=== PATIENT | female | born 2000 | race Caucasian/White ===

== ENCOUNTER 2021-05-10 00:13 | Inpatient (IN) | payer OTHER ==
[~2021-05-10] VITALS: Ht 157.5 cm; Wt 65.3 kg
--- NOTE | 2021-05-10 11:27 | PR ---
[facility] [address] [facility] [place], [place] [address] Signed Progress Notes IP Datetime Report Generated by CPN: 05/10/2021 11:26 PROGRESS NOTES: [id number] Plan: Continue Present Management; Cervical Ripening Other Plans: Cytotec #3 VITAL SIGNS: [id number] Vital Signs: Reviewed; Within Normal Limits EXAM: [id number] Dilatation: 0.0 Effacement: 50 Station: -3 Contractions: every 1-3 minutes MEMBRANES: [id number] Membranes Status: Intact Comments: Patient c/o diarrhea, very loose stooles; has been going on for about 2 weeks now, some N/V. -> start IV fluids, Check CMP Continue Cytotec Induction FETUS A: [id number] FHR Baseline: 140 Variability: Moderate 6-25bpm Accelerations: 15X15 FETUS B: [id number] Signing Physician: Edmund Beasley MD Copies: ~ *Electronically Signed* 05/10/21 1126 EDMUND BEASLEY MD PATIENT NAME: JUAN CARLOS TOUSSAINT PROGRESS NOTE DATE OF : 98 PHYSICIAN: EDMUND BEASLEY MD RPT #: [id number] REPORT IS CONFIDENTIAL AND NOT TO BE RELEASED WITHOUT AUTHORIZATION
--- NOTE | 2021-05-10 18:19 | PR ---
[facility] [address] [facility] [place], [place] [address] Signed Progress Notes IP Datetime Report Generated by CPN: 05/10/2021 18:19 PROGRESS NOTES: [id number] Impression: Normal Progression of Labor Procedures: Artificial ROM Plan: Continue Present Management; Anticipate Vaginal Delivery Other Plans: Cytotec #3 VITAL SIGNS: [id number] Vital Signs: Reviewed; Within Normal Limits EXAM: [id number] Dilatation: 2.0 Effacement: 80 Station: -2 Contractions: every 1-3 minutes MEMBRANES: [id number] Membranes Status: Ruptured ROM Note: Blood noted and Elijah RAMOS aware Comments: Getting more uncomfortable, will call for Epidural. Some variabld decels after AROM; turned to left side. Watch fluid leaking for any more signs of blood. Continue monitoring FETUS A: [id number] FHR Baseline: 140 Variability: Moderate 6-25bpm Accelerations: 15X15 FETUS B: [id number] Signing Physician: Triston Beasley MD Copies: ~ *Electronically Signed* 05/10/21 1819 TRISTON BEASLEY MD PATIENT NAME: JUAN CARLOS TOUSSAINT PROGRESS NOTE DATE OF : 98 PHYSICIAN: TRISTON BEASLEY MD RPT #: [id number] REPORT IS CONFIDENTIAL AND NOT TO BE RELEASED WITHOUT AUTHORIZATION
--- NOTE | 2021-05-10 21:17 | PR ---
[facility] [address] [facility] [place], [place] [address] Signed Progress Notes IP Datetime Report Generated by CPN: 05/10/2021 21:17 PROGRESS NOTES: [id number] Impression: Normal Progression of Labor Procedures: Intrauterine Pressure Catheter; Scalp Electrode Plan: Continue Present Management Other Plans: Cytotec #3 VITAL SIGNS: [id number] Vital Signs: Reviewed; Within Normal Limits EXAM: [id number] Dilatation: 2.0 Effacement: 90 Station: -2 Contractions: every 1-3 minutes MEMBRANES: [id number] Membranes Status: Ruptured ROM Note: Blood noted and Elijah RAMOS aware Comments: Comfortable with epidural Not picking up contractions well, so IUPC and FEKG applied. Continue monitoring, seems to be making progress now. FETUS A: [id number] FHR Baseline: 140 Variability: Moderate 6-25bpm Accelerations: 15X15 FETUS B: [id number] Signing Physician: Triston Beasley MD Copies: ~ *Electronically Signed* 05/10/212116 TRISTON BEASLEY MD PATIENT NAME: TOUSSAINT,JUAN CARLOS COLLIN PROGRESS NOTE DATE OF : 98 PHYSICIAN: TRISTON BEASLEY MD RPT #: [id number] REPORT IS CONFIDENTIAL AND NOT TO BE RELEASED WITHOUT AUTHORIZATION
--- NOTE | 2021-05-10 22:11 | PR ---
[facility] [address] [facility] [place], [place] [address] Signed Progress Notes IP Datetime Report Generated by CPN: 05/10/2021 22:11 PROGRESS NOTES: [id number] Impression: Normal Progression of Labor Procedures: Intrauterine Pressure Catheter; Scalp Electrode Plan: Continue Present Management; Anticipate Vaginal Delivery Other Plans: Cytotec #3 VITAL SIGNS: [id number] Vital Signs: Reviewed; Within Normal Limits EXAM: [id number] Dilatation: 9.0 Effacement: 100 Station: 0 Contractions: every 1-3 minutes MEMBRANES: [id number] Membranes Status: Ruptured ROM Note: Blood noted and Elijah RAMOS aware Comments: Comfortable with Epidural. Try "Hands-Knees" to get fetus to rotate to OA FETUS A: [id number] FHR Baseline: 140 Variability: Moderate 6-25bpm Accelerations: 15X15 FETUS B: [id number] Signing Physician: Edmund Beasley MD Copies: ~ *Electronically Signed* 05/10/21 221 EDMUND BEASLEY MD PATIENT NAME: JUAN CARLOS TOUSSAINT PROGRESS NOTE DATE OF : 98 PHYSICIAN: EDMUND BEASLEY MD RPT #: [id number] REPORT IS CONFIDENTIAL AND NOT TO BE RELEASED WITHOUT AUTHORIZATION
--- NOTE | 2021-05-11 00:45 | PR ---
[facility] [address] [place], [place] [address] Signed Progress Notes IP Datetime Report Generated by CPN: 05/11/2021 00:45 PROGRESS NOTES: [id number] Impression: Non-reassuring Heart Rate Other Impressions: Bradycardia Procedures: Intrauterine Pressure Catheter; Scalp Electrode Plan: Deliver- Section Other Plans: Cytotec #3 VITAL SIGNS: [id number] Vital Signs: Reviewed; Within Normal Limits EXAM: [id number] Dilatation: 9.0 Effacement: 100 Station: 0 Contractions: every 1-3 minutes MEMBRANES: [id number] Membranes Status: Ruptured ROM Note: Blood noted and Elijah RAMOS aware Comments: Late Entry: Patient pushing well, but prominant coccyx and narrow arch causing increased caput, then bradycardia. Tried left side, right side, given SQ Terbutaline. Code 4 C/S called and patient taken to OR to set up while Anesthesia and OR crew arrived. FETUS A: [id number] FHR Baseline: 140 Variability: Moderate 6-25bpm Accelerations: 15X15 FETUS B: [id number] Signing Physician: Edmund Beasley MD Copies: ~ *Electronically Signed* 05/11/21 0045 EDMUND BEASLEY MD PATIENT NAME: JUAN CARLOS TOUSSAINT PROGRESS NOTE DATE OF : 98 PHYSICIAN: EDMUND BEASLEY MD RPT #: [id number] REPORT IS CONFIDENTIAL AND NOT TO BE RELEASED WITHOUT AUTHORIZATION
--- NOTE | 2021-05-11 00:49 | NUR ---
05/11/21 0049 Sheets,Yessenia 0014 PT ARRIVED TO PACU AND VSS. RESEARCH TECHNICIAN AT BEDSIDE AND PT REPORTS NAUSEA. HOB INCREASED SLIGHTLY AND SUCTIONS USED, GREEN EMESIS NOTED. COOL WASH CLOTH PLACED ON HEAD. IV INFUSING WITH 20 UNITS OXYTOCIN SITE WNL. IV FLUIDS INCREASED PER RESEARCH TECHNICIAN. PT GRAMCING WITH FUNDAL CHECK AND EDUCATION GIVEN. 0022 CNRA DOING BLOCKS, PT REPORTS NO PAIN WHEN RESTING IN BED. PT REPORTS NAUSEA IS BETTER. 0042 PT SNORING NOTED AND WAKES EASILY TO VERBAL STIMULI. VSS. PLAN OF CARE DISCUSSED. PT EASILY FALLS BACK TO SLEEP.
--- NOTE | 2021-05-11 07:32 | PR ---
[facility] [address] [place], [place] [address] Signed PP Progress Notes Datetime Report Generated by CPN: 05/11/2021 07:32 SUBJECTIVE: [id number] Pain: Within Normal Limits Flatus: Yes Bowel Movement: No Vital Signs: [id number] Vital Signs: Reviewed; Within Normal Limits Cardiovascular: Normal Respiratory: Normal Abdomen/Uterus: Normal Lochia: Not Done Vulva/Perineum: Not Done Breasts: Not Done CVA Tenderness: Normal Extremities: Normal Incision: Normal Progress: Normal Exam Comments: Fundus firm U-2 nontender. Incision well healing w/ cornelius in place. SCDs in place IMPRESSION/PLAN/PROCEDURES: [id number] Impression: Normal Progression Plan: Continue Present Management Progress Notes: Pt seen and examined. Doing well. Ann cath in place. No fevers/chills. well. Tolerating diet. Pain and lochia minimal. No questions or concerns. Reviewed AM Hgb. Will d/c ann cath and increase ambulating and progress diet as tolerated. Continue routine / postoperative care. Pt reports no shortness of breath; was COVID positive on admission. Signing Physician: Chica Shabazz DO Copies: ~ *Electronically Signed* 05/11/21 0732 CHICA SHABAZZ DO PATIENT NAME: JUAN CARLOS TOUSSAINT PROGRESS NOTE DATE OF : 98 PHYSICIAN: CHICA SHABAZZ DO RPT #: [id number] REPORT IS CONFIDENTIAL AND NOT TO BE RELEASED WITHOUT AUTHORIZATION
--- NOTE | 2021-05-12 08:53 | PR ---
[facility] [address] [place], [place] [address] Signed PP Progress Notes Datetime Report Generated by CPN: 05/12/2021 08:53 SUBJECTIVE: [id number] Pain: Within Normal Limits Nausea/Vomiting: Denies Flatus: Yes Bowel Movement: No Vital Signs: L4733662 Vital Signs: Reviewed; Within Normal Limits Cardiovascular: Normal Respiratory: Normal Abdomen/Uterus: Normal Lochia: Normal Vulva/Perineum: Not Done Breasts: Not Done CVA Tenderness: Normal Extremities: Normal Incision: Normal Progress: Normal Exam Comments: Fundus firm U-2 nontender. Incision healing well IMPRESSION/PLAN/PROCEDURES: [id number] Impression: Normal Progression Plan: Continue Present Management Progress Notes: Pt seen and examined. Doing well. Ambulating, voiding, and tolerating full diet. Pain and lochia minimal. well. No fevers/chills or other concerns. Anticipate d/c home tomorrow. Signing Physician: Chica Shabazz DO Copies: ~ *Electronically Signed* 05/12/21 0853 CHICA SHABAZZ DO PATIENT NAME: JUAN CARLOS TOUSSAINT PROGRESS NOTE DATE OF : 98 PHYSICIAN: CHICA SHABAZZ DO RPT #: [id number] REPORT IS CONFIDENTIAL AND NOT TO BE RELEASED WITHOUT AUTHORIZATION
--- NOTE | 2021-05-13 08:01 | PR ---
[facility] [address] [place], [place] [address] Signed PP Progress Notes Datetime Report Generated by CPN: 05/13/2021 08:01 SUBJECTIVE: [id number] Pain: Within Normal Limits Nausea/Vomiting: Denies Flatus: Yes Bowel Movement: Yes Vital Signs: N6524087 Vital Signs: Within Normal Limits Notable Details: Some mild elevated BPs. No AKHTAR, RUQ pain, and visual changes Cardiovascular: Normal Respiratory: Normal Abdomen/Uterus: Normal Lochia: Normal Vulva/Perineum: Not Done Breasts: Not Done CVA Tenderness: Normal Extremities: Normal Incision: Normal Progress: Normal Exam Comments: Fundus firm U-2 nontender. Incision healing well IMPRESSION/PLAN/PROCEDURES: [id number] Impression: Normal Progression Plan: Remove [place]; Discharge Progress Notes: Pt seen and examined. Doing well. Ambulating, voiding, and tolerating full diet. Pain and lochia minimal. without difficulty. No fevers/chills or other concerns. Pt w/ occasional mildly elevated BPs without AKHTAR, RUQ pain, or visual changes. Unsure of pp contraception plans but leaning towards Mirena. Reviewed d/c instructions in detail. F/U in office in 2-3 d for BP check Signing Physician: Chica Shabazz DO Copies: ~ *Electronically Signed* 05/13/21 0801 CHICA SHABAZZ DO PATIENT NAME: JUAN CARLOS TOUSSAINT PROGRESS NOTE DATE OF : 98 PHYSICIAN: CHICA SHABAZZ DO RPT #: [id number] REPORT IS CONFIDENTIAL AND NOT TO BE RELEASED WITHOUT AUTHORIZATION
--- NOTE | 2021-05-13 15:33 | PATH ---
[facility] [address] [place], [place] [address] Signed SPECIMEN(S): A PLACENTA SPECIMEN SOURCE: A. PLACENTA CLINICAL HISTORY: Mother's age: 22. Specific issues of concern: Induction; bradycardia/calcified placenta. FINAL PATHOLOGIC DIAGNOSIS: Placenta, third trimester: - Ulloa placenta, approximately 10th percentile for weight for stated gestational age of 39 weeks, 1 day. - Umbilical cord: Three-vessel umbilical cord with focal minimal acute vasculitis ( inflammatory response stage1, grade 1). - membranes: No histopathologic abnormality. - Placental disc: Chorionic villi with mature villous morphology. NAL:cml:C2NR MICROSCOPIC EXAMINATION: Histologic sections of all submitted blocks are examined by light microscopy. These findings, together with the gross examination, support the pathologic diagnosis. GROSS DESCRIPTION: The specimen, labeled "TB," and designated on the requisition "placenta," is received in formalin and consists of a ulloa discoid placenta with the following parameters: Umbilical cord: Insertion eccentric, measurement 1.4-1.7 cm; trivascular. Two additional cord segments measuring 21.8 x 0.8-1.6 cm. Cord coiling index (per 10 cm): Four. Lesions: Minimal dilated vessels with clot material and Randolph's jelly. Membranes: Insertion site: Marginal, mead-pink/translucent, rupture site unable to determine. Fragmented. Other: Adherent clot material with thickened areas. Chorionic Plate: Normal radiating vascular pattern, blue-purple and shiny. Lesions: Not grossly identified. Other: Not grossly identified. Maternal Surface: Normal cotyledons, fragmented. Lesions: Peripheral calcification. Measurement: 19.7 x 13.2 x 3.0 cm. Weight (trimmed): 380 grams. Cut Surface: Maroon and spongy. Lesions: Diffusely peripheral areas of PATIENT NAME: JUAN CARLOS TOUSSAINT PATHOLOGY DATE OF : 98 REPORT #: [id number] PHYSICIAN: [facility] PCP: NO PRIMARY CARE PHYSICIAN REPORT IS CONFIDENTIAL AND NOT TO BE RELEASED WITHOUT AUTHORIZATION [facility] [address] [place], [place] [address] Signed calcification involving less than 10% of parenchyma volume. Basal plate fibrin measures 0.1 cm in thickness. Other Findings: Not grossly identified. Cassette Summary: (A1) Membranes and umbilical cord (A2) Parenchyma with calcified areas (A3) Parenchyma with calcified areas (A4) Placenta parenchyma AT (under the direct supervision of a pathologist) The Gross Description was prepared using a voice recognition system. The report was reviewed for accuracy; however, sound-alike word errors, addition and/or deletions may occur. If there is any question about this report, please contact Client Services. PERFORMING LABORATORY: The technical component was performed by [facility], [address] [place] [id number] (Research Administrator: Ivonne Pavon MD; CLIA# [id number]).Professional interpretation was performed by [facility], [address] [address] (CLIA# [id number]). Diagnostician: Sigrid Figueroa MD Pathologist Electronically Signed 05/13/2021 Copies: ~ PATIENT NAME: TOUSSAINTJUAN CARLOSSOUMYA POLANCO PATHOLOGY DATE OF : 98 REPORT #: [id number] PHYSICIAN: [facility] PCP: NO PRIMARY CARE PHYSICIAN REPORT IS CONFIDENTIAL AND NOT TO BE RELEASED WITHOUT AUTHORIZATION
--- NOTE | 2021-05-17 09:47 | OR ---
[facility] [address] [place], [place] [address] Signed DATE OF OPERATION: 05/10/2021 SURGEON: Triston Nava MD PREOPERATIVE DIAGNOSES: bradycardia; term , delivered; premature calcification the placenta, mild right pyelectasis; and coronavirus disease-2019 positive. POSTOPERATIVE DIAGNOSES: bradycardia; term , delivered; premature calcification the placenta, mild right pyelectasis; and coronavirus disease-2019 positive. PROCEDURE: Emergency primary low-transverse segment section, delivery of live male infant. TERRITORY SUPERVISOR: Dr. Shabazz. ANESTHESIA: Epidural and general. ESTIMATED BLOOD LOSS: 600 mL. COMPLICATIONS: None. DRAINS: Rose to bladder. FINDINGS: Live male infant, Apgars 8 and 9, weight 6 pounds 13 ounces. Normal uterus, normal tubes and ovaries bilateral. There was extension of the incision down the left side of the lower segment towards the cervix and slight extension on the right side. The infant's head was wedged tightly in the pelvis and was in TLEMA presentation. DESCRIPTION OF PROCEDURE: The patient was brought into the operating room, placed in supine position, and prepped and draped in usual sterile fashion. Epidural was re-dosed while the patient was prepped in the OR set up because of emergency with OR crew arriving as the Electronically Signed By: TRISTON NAVA MD 05/17/21 0947 PATIENT NAME: JUAN CARLOS TOUSSAINT OPERATIVE REPORT DATE OF : 98 REPORT #: [id number] PHYSICIAN: TRISTON NAVA MD PCP: NO PRIMARY CARE PHYSICIAN REPORT IS CONFIDENTIAL AND NOT TO BE RELEASED WITHOUT AUTHORIZATION [facility] [address] [place], [place] [address] Signed procedure was set up. The patient was prepped and draped in usual sterile fashion. Skin tested to make sure epidural was working, but was causing pain, so the patient was then immediately placed under general anesthesia. After general anesthesia was obtained. A Pfannenstiel skin incision was made with a scalpel. The incision was extended through the subcutaneous tissue and the fascia was nicked with scalpel and fascial incision was extended in transverse fashion using curved scissors. The underlying abdominal musculature was bluntly and sharply from the fascia above and below the incision. The abdominal musculature and peritoneum were bluntly opened with finger dissection. An Remington self-retaining retractor was inserted into the incision. Lower uterine segment was identified and nicked with a scalpel and finger dissection used to extend the incision in a transverse fashion. The head was noted to be wedged tightly in TELMA presentation. The head was carefully removed, but during removal, extension on the left side was noted. With delivery of the head, the rest of the infant was easily delivered from the incision. Meconium stained fluid was noted. The cord was doubly clamped and cut. The was passed off table in good condition awaiting nurse. Cord gases were obtained and sent. The placenta was then manually removed. Uterine cavity explored with a lap pad to remove any retained membranes. T clamps were used to grasp the corners and the edges of the incision, which was inspected and again the deep left extension and a small right extension were noted. The bladder was examined and noted to be still well above the extension, so a running locking stitch of 0 Monocryl was started at the bottom of the extension and the extension closed using running locking stitch of 0 Monocryl up to the angle and then across to the midline. A second running locking stitch of 0 Monocryl was started on the right side at the smaller extension up to the angle and then across to the midline meeting the first stitch. A second running locking stitch of 0 Monocryl was used to imbricate the entire incision including the extensions. The entire pelvis was irrigated, suctioned, examined, and any superficial bleeding spots were cauterized with the Bovie. There was still one area of bleeding at the left angle where the extension started down. This was controlled with a [id number]-vs-[id number] stitch of 0 Monocryl keeping a finger behind the broad ligament to make sure no bowel or pelvic structures were caught within the closure and was done after verifying the ureter to be well below and lateral to this position in the broad ligament. When good hemostasis was obtained, the uterus was placed back in the abdomen. The entire abdomen irrigated, suctioned, and examined and again any superficial bleeding spots were cauterized with the Bovie. The Remington retractor was removed and the anterior peritoneum was closed using running stitch of 2-0 Vicryl suture. The abdominal musculature was reapproximated using interrupted stitches of 0 Vicryl suture. The abdominal wall incision was irrigated, suctioned, and examined, and any bleeding spots were cauterized with the Bovie. The fascia was then closed using two running stitch of 0 Vicryl suture meeting in the midline. The subcutaneous tissue was irrigated, suctioned, and examined, and any bleeding spots were cauterized with the Bovie. Subcutaneous tissue was then closed using interrupted stitches of 3-0 Vicryl Electronically Signed By: TRISTON NAVA MD 05/17/21 0947 PATIENT NAME: JUAN CARLOS TOUSSAINT OPERATIVE REPORT DATE OF : [birth year] REPORT #: [id number] PHYSICIAN: TRISTON NAVA MD PCP: NO PRIMARY CARE PHYSICIAN REPORT IS CONFIDENTIAL AND NOT TO BE RELEASED WITHOUT AUTHORIZATION [address] [place] [address] Signed suture and the skin was reapproximated using skin clips. The patient tolerated the procedure well, went to recovery room in good condition. The sponge, needle, instrument count were correct at the end of the procedure. Triston Nava MD MJRafael/MODL /[id number] Copies: ~ Electronically Signed By: TRISTON NAVA MD 05/17/21 0947 PATIENT NAME: JUAN CARLOS TOUSSAINT OPERATIVE REPORT DATE OF : 98 REPORT #: [id number] PHYSICIAN: TRISTON NAVA MD PCP: NO PRIMARY CARE PHYSICIAN REPORT IS CONFIDENTIAL AND NOT TO BE RELEASED WITHOUT AUTHORIZATION
== END 2021-05-13 13:15 | disposition home or self-care (01) | DRG 786 ==
LOC: FBC 00:13
PROVIDERS: ADMIT General Practice; ATTEND General Practice
PROC: 8E0ZXY6 Isolation (ICD-10-PCS; 2021-05-10)
PROC: 10D00Z1 Extraction of Products of Conception, Low, Open Approach (ICD-10-PCS; principal; 2021-05-10 23:00)
DX: O76 Abnormality in fetal heart rate and rhythm complicating labor and delivery (principal); U07.1 COVID-19; O98.52 Other viral diseases complicating childbirth; Z3A.39 39 weeks gestation of pregnancy; Z37.0 Single live birth; O35.8XX0 Maternal care for other (suspected) fetal abnormality and damage, not applicable or unspecified; O43.893 Other placental disorders, third trimester; O77.0 Labor and delivery complicated by meconium in amniotic fluid
CPT/HCPCS: 36415; 76942; 80053; 82803; 85027; 86850; 86900; 86901; 88307; A9270; J0690; J1100; J2001; J2250; J2370; J2405; J2590; J2704; J2795; J3010; J3105; J7121; U0003

== ENCOUNTER 2022-03-01 19:14 | Emergency (ER) | payer OTHER ==
[~2022-03-01] VITALS: Ht 157.5 cm; Wt 42.8 kg
--- OUTSIDE RECORDS SUMMARY | 2022-03-01 19:16 | XMS ---
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 Brigette has no Care Guidelines for this patient. Shannon VISIT COUNT (12 MO.) 1 [facility] NOTE: Visits indicate total known visits. ED/UCC VISIT TRACKING (12 MO.) [facility]22 19[facility] [place] [facility] COMPLAINT: - VOMITING/ 9 WEEKS PREG 02/28/2022 16:15 [facility] OR TYPE: Emergency DIAGNOSES: - Nausea with vomiting, unspecified - VOMITING 9WKS INPATIENT VISIT TRACKING (12 MO.) 05/10/2021 00:13 JAN Campuzano OR TYPE: [facility] COMPLAINT: - INDUCTION DIAGNOSES: - 39 weeks gestation of - COVID-19 - Abnormality in heart rate and rhythm complicating labor and delivery - Other viral diseases complicating childbirth - Maternal care for other (suspected) abnormality and damage, not applicable or unspecified - Abnormality in heart rate and rhythm complicating labor and delivery - Labor and delivery complicated by meconium in amniotic fluid - Single live - Maternal care for other (suspected) abnormality and damage, not applicable or unspecified - Single live - COVID-19 - Labor and delivery complicated by meconium in amniotic fluid - 39 weeks gestation of - Other placental disorders, third trimester - Maternal care for abnormalities of the heart rate or rhythm, third trimester, not applicable or unspecified - Other viral diseases complicating childbirth - Other placental disorders, third trimester [email or web address]
[2022-03-01] MEDS ORDERED: ONDANSETRON ODT4 MG PO (19:53)
[2022-03-01] MEDS ORDERED: PROMETHAZINE12.5 M1 PO (19:54)
[2022-03-01] MEDS ORDERED: REGLAN5 MG PO (22:02)
[2022-03-01] MEDS ORDERED: PROMETHAZINE HC25 MG PR (22:02)
[2022-03-01] MEDS ORDERED: CEPHALEXIN500 MG PO (22:02)
== END 2022-03-01 22:37 | disposition home or self-care (01) ==
LOC: ED 19:14
DX: O21.0 Mild hyperemesis gravidarum (principal); O23.41 Unspecified infection of urinary tract in pregnancy, first trimester; N39.0 Urinary tract infection, site not specified; Z3A.09 9 weeks gestation of pregnancy
CPT/HCPCS: 36415; 80053; 81001; 83735; 84703; 85025; 96361; 96374; 96375; 99284-25; J2550; J2765; J7121